=== PATIENT | female | born 1960 | race Caucasian/White ===

== ENCOUNTER 2017-01-08 19:47 | Emergency (ER) | payer BC, OTHER ==
[2017-01-08 20:10] VITALS: BP 125/89
--- OUTSIDE RECORDS SUMMARY | 2017-01-08 21:04 | XMS REPORT | Continuity of Care Document ---
:1960 Author Organization [facility] ([facility]) Address [address] [place] [address] Phone [phone] Care Team Providers Name Role Phone Provider, No-Primary Care Primary Care Provider Unavailable Source Comments This disclosure is being made pursuant to the Care Everywhere program, applicable federal and state laws, and may not contain all informaitonavailable regarding this patient.[facility] ([facility]) Active Allergies and Adverse Reactions Not on File Current Medications No known medications Active Problems Not on file Social History Tobacco Use Types Packs/Day Years Used Date Never Assessed Last Filed Vital Signs Vital Sign Reading Time Taken Blood Pressure 134/84 03/14/2016 4:10 PM CDT Pulse 71 03/14/2016 4:10 PM CDT Temperature 36.5 C (97.7 F) 03/14/2016 4:10 PM CDT Respiratory Rate 16 03/14/2016 4:10 PM CDT Height - - Weight 79.289 kg (174 lb 12.8 oz) 03/14/2016 4:10 PM CDT Body Mass Index - - Oxygen Saturation - - Plan of Care Health Maintenance Due Date Last Done Comments HCV Screening 1960 Hepatitis B Vaccine (1 of 3 - Primary Series) 1960 Tdap Vaccine 1973 Lipid Disorder Screening 1980 MMR Vaccine 1980 Td Vaccine 1980 Cervical Cancer Screening 1992 Mammogram 2002 Colonoscopy 06/22/2012 Influenza Vaccine: Seasonal (#1) 06/30/2016 Results from Last 3 Months Not on file
--- NOTE | 2017-01-08 21:13 | ERNOTE ---
Lower Extremity HPI - Narrative Date of Service: 01/08/17 - General Lower Extremities Pain: ankle: left Time Seen by Provider: 01/08/17 20:46 Source: patient, RN notes reviewed Exam Limitations: no limitations - Immun/Allergies/Home Medications Immunizations: IMMUNIZATION HX Immunizations Up to Date Yes History of Influenza Vaccine No Hx Pneumococcal Vaccination No Allergies/Adverse Reactions: Allergies Allergy/AdvReac Type Severity Reaction Status Date / Time No Known Allergies Allergy Unverified 01/08/17 20:10 Home Medications: HOME MEDICATIONS NK [No Home Medication] 01/08/17 [Last Taken Unknown] - History of Present Illness Narrative: 56 y/o female to ED for left ankle pain after falling at home. She slipped on ice while going to get mojio. She took Motrin [employer] and denies the need for pain medication currently. She is able to bear weight but it is painful. She denies any prior injuries to the extremity. Date (Duration): 01/08/17 Time (Timing): 17:00 Location of Incident: home Method of Injury: Reports: fell Reason for Fall: Reports: slipped Loss of Consciousness: Reports: no loss of consciousness Associated Symptoms: Denies: unable to bear weight, snapping, popping sensation , weakness, sensory loss Other Injuries: Reports: none Review of Systems - Review of Systems Constitutional: Absent: recent illness, fever, malaise EYE: Present: no symptoms reported ENT: Present: no symptoms reported Respiratory: Present: no symptoms reported Cardiology: Absent: chest pain, syncope Gastrointestinal/Abdominal: Present: no symptoms reported Genitourinary: Present: no symptoms reported Musculoskeletal: Present: joint pain, joint swelling. Absent: back pain, neck pain Skin: Present: lumps, change in color. Absent: lesions Neurological: Present: See HPI Endocrine: Present: no symptoms reported Hematologic/Lymphatic: Present: no symptoms reported Psych: Present: no symptoms reported - Patient's Past Medical History Patient History - Medical: No pertinent hx Patient History - Cardiac/Respiratory: No pertinent hx Patient History - Cancer: No Hx of Cancer Patient History - Surgical Procedures: Patient History - Other: None LMP (females 10-50): Menopausal - Social History Living Situations: home Psych History: No pertinent hx Smoking Status: Light tobacco smoker Patient requests Smoking Cessation Consult: No Initiate information on Smoking Cessation: No - Immunizations Immunizations Up to Date: Yes Hx Pneumococcal Vaccination: No History of Influenza Vaccine: No Physical Exam - Physical Exam General Appearance: Present: wd/wn, alert, no apparent distress Neck: Present: normal inspection, nontender, supple, full range of motion Respiratory: Present: no respiratory distress, normal breath sounds, no accessory muscle use, lungs clear Cardiovascular/Chest: Present: regular rate, rhythm, no murmur, normal peripheral pulses Peripheral Pulses: N=norm/S=strong/W=weak/B=bound/A=absent: Dorsalis-pedis (R): Strong, Dorsalis-pedis (L): Strong Extremity Exam: Present: decreased range of motion - Left ankle, joint swelling , other - Ecchymosis, swelling, and tenderness to left lateral malleolus Neurological Exam: Present: alert, oriented, normal mood/affect, no motor/ sensory deficits Skin Exam: Present: normal color, warm/dry ED Progress - Vital Signs Patient's Vital Signs:: I have reviewed the patient's vital signs. Vital Signs: Vital Signs 01/08/17 20:07 Temperature 37.0 C Pulse Rate 78 Respiratory 16 Rate Blood Pressure 125/89 O2 Sat by Pulse 97 Oximetry - X-Ray X-Ray #1 X-Ray: ankle Interpretation: Reviewed by me X-ray Comments: Technique: Three views of the left ankle.. Findings: Diffuse decreased bony mineralization. There is an acute oblique nondisplaced fracture through the distal fibula with the inferior fracture extending to the ankle mortise at the level of the tibiotalar joint. There is however no widening of the ankle mortise appreciated. No other fractures identified. Extensive soft tissue swelling overlying the fracture.. IMPRESSION: ACUTE OBLIQUE NONDISPLACED FRACTURE OF THE DISTAL FIBULA Electronically signed by Tobin Landeros D.O.. - Progress/Reassessment Chief Complaint: Ankle Injury/ Pain Progress:: Improved Procedures Pre-Proc Neuro Vasc Exam: normal Hand-Made Type: ocl Splint: sugar-tong Alignment good: Yes Splint applied by: Nurse Post-Proc Neuro Vasc Exam: normal Complications: Pt yun procedure well Departure Clinical Impression: Fibula fracture Qualifiers: Encounter type: initial encounter Fibula location: distal Fracture type: closed Fracture morphology: unspecified fracture morphology Laterality: left Qualified Code(s): S82.832A - Other fracture of upper and lower end of left fibula, initial encounter for closed fracture - Departure Disposition: Home Follow Up Needed Condition: Good Instructions: Ankle Fracture, [id number], Form - Excuse from Work, School, or Physical Activity Additional Instructions: Contact orthopedics after 8:30 tomorrow morning regarding follow up Tylenol for pain Elevate whenever possible Leave splint in place No weight bearing Referrals: Riley Cisneros MD [Staff Physician] -
== END 2017-01-08 21:13 | disposition home or self-care (01) ==
LOC: ER 19:47
PROC: 2W3RX1Z Immobilization of Left Lower Leg using Splint (ICD-10-PCS; principal; 2017-01-08)
DX: S82.832A Other fracture of upper and lower end of left fibula, initial encounter for closed fracture (principal); F17.210 Nicotine dependence, cigarettes, uncomplicated; W00.0XXA Fall on same level due to ice and snow, initial encounter; Y92.009 Unspecified place in unspecified non-institutional (private) residence as the place of occurrence of the external cause